=== PATIENT | female | born 1980 | race Caucasian/White ===

== ENCOUNTER 2017-10-24 10:16 | Emergency (ER) | payer SELFPAY ==
[~2017-10-24] VITALS: Ht 162.6 cm; Wt 68.0 kg
[2017-10-24 10:30] VITALS: BP_SYST 121
[2017-10-24] MEDS ORDERED: cefTRIAXone 1 GM VIAL IM ONE (11:45)
[2017-10-24 12:05] VITALS: BP_SYST 118
== END 2017-10-24 12:05 | disposition home or self-care (01) ==
LOC: SED 10:16
DX: L08.9 Local infection of the skin and subcutaneous tissue, unspecified (principal); R21 Rash and other nonspecific skin eruption; R03.0 Elevated blood-pressure reading, without diagnosis of hypertension
CPT/HCPCS: 81025; 96372; 99283; J0696

== ENCOUNTER 2018-02-04 11:33 | Emergency (ER) | payer MEDICAID ==
[~2018-02-04] VITALS: Ht 162.6 cm; Wt 65.8 kg
[2018-02-04 11:35] VITALS: BP_SYST 126
[2018-02-04] MEDS ORDERED: IBUPROFEN 800 MG TABLET PO ONE (13:00)
[2018-02-04] MEDS ORDERED: SULFAMETHOXAZOLE/TRIMETHOPR DS 1 TABLET PO ONE (13:00)
[2018-02-04 13:30] VITALS: BP_SYST 126
== END 2018-02-04 13:30 | disposition home or self-care (01) ==
LOC: SED 11:33
DX: L03.316 Cellulitis of umbilicus (principal); L03.116 Cellulitis of left lower limb; R03.0 Elevated blood-pressure reading, without diagnosis of hypertension
CPT/HCPCS: 99283